=== PATIENT | male | born 1985 | race Caucasian/White ===

== ENCOUNTER 2018-09-03 13:28 | Observation (INO) | payer MEDICAID, OTHER ==
--- NOTE | 2018-09-03 13:41 | EDPHY ---
General - History Smoking Status: Current every day smoker Time Seen by Provider: 09/03/18 13:31 Narrative: CHIEF COMPLAINT: Low heart rate HISTORY OF PRESENT ILLNESS: Patient presents from the [facility] Office with complaints of low heart rate. Heart rate has been reportedly in the 30s and 40s for the past 3 days. The patient reports no symptoms from this, but he does state he is currently withdrawing from heroin since Saturday. He reports using heroin 2-3 times daily for many months. He is feeling better at this time. To Saturday but still feels some nausea and shakes that time. He has had no chest pain. No shortness of breath. No lightheadedness, dizziness or loss of consciousness. He was sent here due to heart rate in the upper 30s with an EKG that was reportedly junctional rhythm. He has had no previous diagnosis of bradycardia, conduction delay, or hypothyroid. He is asymptomatic. He has no modifying factors. No other associated complaints. REVIEW OF SYSTEMS: 10 systems were reviewed and negative with the exception of the elements mentioned in the history of present illness. PCP: None SPECIALISTS: None PAST MEDICAL HISTORY: Polysubstance abuse PAST SURGICAL HISTORY: No recent surgical history SOCIAL HISTORY: Denies tobacco use. Occasional alcohol use. He does endorse methamphetamine 1 week ago, heroin daily with last intake Saturday, cocaine 10 years ago. Currently incarcerated FAMILY HISTORY: Noncontributory EXAMINATION: General Appearance: Alert, no distress. Ambulatory. Conversing in full, coherent sentences. Head: normocephalic, atraumatic Eyes: Pupils equal and round, no conjunctival pallor or injection ENT, Mouth: Mucous membranes moist Neck: Normal inspection, supple, non-tender Respiratory: Lungs are clear to auscultation Cardiovascular: Regular rate and rhythm Gastrointestinal: Abdomen is soft and nontender Back: non-tender, no bony abnormalities Neurological: GCS 15. A&O, nonfocal, normal steady gait. Strength is symmetric in all 4 limbs. Skin: Warm and dry, no rash. Multiple tattoos. Extremities: Nontender, no pedal edema Psychiatric: Mood and affect normal DIFFERENTIAL DIAGNOSES: Including but not limited to bradycardia, junctional rhythm, electrolyte disturbance, conduction delay MDM: 1:40 p.m. Junctional rhythm versus bradycardia in a patient who is asymptomatic from this. He is currently withdrawing from heroin. He has no chest pain. No lightheadedness or syncope. He is conversing in full sentences. He is awake alert. He ambulated into the emergency department without difficulty. I discussed with Dr. Elizabeth. We will consult Cardiology. Laboratory studies pending. 1:55 p.m. Case discussed with on-call director of product marketing Dr. Mirza. He has reviewed the EKG in use. He will come evaluate the patient in the emergency department in consultation. 2:[address] Mirza evaluated the patient in the emergency department. He recommends admission for observation. 2:[address] Mirza has discussed the case with Dr. Elizabeth. He reportedly has read the echo was normal. Continue with observation admission. I discussed case with Dr. Mckenna. She will admit the patient to her service. She requested PCU bed, observation status. He is admitted stable condition. EKG interpretation: Dr. Elizabeth Junctional rhythm 38 beats per minute SUPERVISION: Patient was independently examined, but I discussed the case with my primary supervising physician Dr. Elizabeth. CONSULTATION: Cardiology, Dr. Mirza (MoralesSam) This patient was seen and examined by me. He presents with junctional bradycardia, with a normal blood pressure. Cardiovascular: Regular rhythm and rate, no murmur. He was seen by Dr. Mirza in the emergency department. Echocardiogram is normal. The plan is to admit the patient for observation overnight. (Maribell Elizabeth) - Objective Vital Signs: Initial Vital Signs Temperature (C) 36.9 C 09/03/18 13:29 Heart Rate 37 L 09/03/18 13:29 Respiratory Rate 16 09/03/18 13:29 Blood Pressure 151/92 H 09/03/18 13:29 O2 Sat (%) 98 09/03/18 13:29 O2 Delivery Mode Room Air Allergies/Adverse Reactions: No Known Allergies Allergy (Verified 09/03/18 13:34) Home Medications: Medication Instructions Recorded Acetaminophen [Tylenol ES 500 mg 1,000 mg PO TID PRN 09/03/18 (*)] Atenolol [Tenormin 50 mg (*)] 50 - 100 mg PO DAILY PRN 09/03/18 Bismuth Subsalicylate 15 - 30 ml PO TID PRN 09/03/18 [Pepto-Bismol oral liquid (*)] Folic Acid [Folic Acid 1 MG (*)] 1 mg PO DAILY 09/03/18 Ibuprofen [Motrin (*)] 800 mg PO BID PRN 09/03/18 Ondansetron Odt [Zofran Odt 4 mg 4 mg PO BID PRN 09/03/18 (*)] Promethazine HCl [Phenergan 25mg 25 mg PO TID PRN 09/03/18 (*)] Thiamine HCl 100 mg PO DAILY 09/03/18 chlordiazePOXIDE [Librium 25 mg 25 - 100 mg PO PRN PRN 09/03/18 (*)] clonIDINE [Catapres (*)] 0.1 mg PO TID PRN 09/03/18 Laboratory Results: Laboratory Results 09/03/18 14:00 09/03/18 14:00 09/03/18 09/03/18 09/03/18 14:01 14:00 14:00 WBC RBC Hgb Hct MCV MCH MCHC RDW Plt Count MPV Neut % (Auto) Lymph % (Auto) [place] % (Auto) Eos % (Auto) Baso % (Auto) Nucleat RBC Rel Count Absolute Neuts (auto) Absolute Lymphs (auto) Absolute Monos (auto) Absolute Eos (auto) Absolute Basos (auto) Absolute Nucleated RBC Immature Gran % Immature Gran # Sodium 141 mEq/L mEq/L (135-145) Potassium 4.1 mEq/L mEq/L (3.3-5.0) Chloride 107 mEq/L mEq/L (97-110) Carbon Dioxide 25 mEq/l mEq/l (22-31) Anion Gap 9 mEq/L mEq/L (6-14) BUN 7 mg/dL mg/dL (7-23) Creatinine 0.6 mg/dL L mg/dL (0.7-1.3) Estimated GFR > 60 Glucose 99 mg/dL mg/dL (70-100) Calcium 9.4 mg/dL mg/dL (8.5-10.4) Magnesium 2.1 mg/dL mg/dL (1.6-2.3) POC Troponin I 0.00 ng/mL ng/mL (0.00-0.08) TSH 2.170 uIU/mL uIU/mL (0.465-4.680) Hepatitis A IgM Ab Pending Hep Bs Antigen Pending Hep B Core IgM Ab Pending Hepatitis C Antibody Pending HIV 1&2 Antibody Pending 09/03/18 14:00 WBC 12.65 10^3/uL H 10^3/uL (3.80-9.50) RBC 4.40 10^6/uL 10^6/uL (4.40-6.38) Hgb 13.2 g/dL L g/dL (13.7-17.5) Hct 37.8 % L % (40.0-51.0) MCV 85.9 fL fL (81.5-99.8) MCH 30.0 pg pg (27.9-34.1) MCHC 34.9 g/dL g/dL (32.4-36.7) RDW 12.2 % % (11.5-15.2) Plt Count 286 10^3/uL 10^3/uL (150-400) MPV 10.5 fL fL (8.7-11.7) Neut % (Auto) 66.3 % % (39.3-74.2) Lymph % (Auto) 24.1 % % (15.0-45.0) Queens % (Auto) 8.2 % % (4.5-13.0) Eos % (Auto) 0.3 % L % (0.6-7.6) Baso % (Auto) 0.6 % % (0.3-1.7) Nucleat RBC Rel Count 0.0 % % (0.0-0.2) Absolute Neuts (auto) 8.39 10^3/uL H 10^3/uL (1.70-6.50) Absolute Lymphs (auto) 3.05 10^3/uL H 10^3/uL (1.00-3.00) Absolute Monos (auto) 1.04 10^3/uL H 10^3/uL (0.30-0.80) Absolute Eos (auto) 0.04 10^3/uL 10^3/uL (0.03-0.40) Absolute Basos (auto) 0.07 10^3/uL 10^3/uL (0.02-0.10) Absolute Nucleated RBC 0.00 10^3/uL 10^3/uL (0-0.01) Immature Gran % 0.5 % % (0.0-1.1) Immature Gran # 0.06 10^3/uL 10^3/uL (0.00-0.10) Sodium Potassium Chloride Carbon Dioxide Anion Gap BUN Creatinine Estimated GFR Glucose Calcium Magnesium POC Troponin I TSH Hepatitis A IgM Ab Hep Bs Antigen Hep B Core IgM Ab Hepatitis C Antibody HIV 1&2 Antibody Medications Given: Acetaminophen (Tylenol) 650 mg PO Q4HRS PRN PRN Reason: Pain, Mild/Fever, Can Take PO Stop: 03/02/19 15:21 Last Admin: 09/03/18 17:53 Dose: 650 mg Sodium Chloride (Ns) 1,000 mls @ 100 mls/hr IV CONT KATHERINE Stop: 03/02/19 15:29 Last Admin: 09/03/18 16:31 Dose: 1,000 mls Nicotine Polacrilex (Nicorette) 2 mg B Q1HR PRN PRN Reason: Nicotine Withdrawal Stop: 03/02/19 15:21 Last Admin: 09/03/18 16:33 Dose: 2 mg Ondansetron HCl (Zofran Odt) 4 mg PO Q4HRS PRN PRN Reason: Nausea/Vomiting, Use 1st Stop: 03/02/19 15:21 Last Admin: 09/03/18 16:31 Dose: 4 mg Point of Care Test Results: Chemistry 09/03/18 14:01 POC Troponin I 0.00 ng/mL ng/mL (0.00-0.08) Departure - Departure Disposition: [facility] Inpatient Acute Clinical Impression: Bradycardia, Junctional rhythm Condition: Fair
[2018-09-03 14:08] LABS: PLATELET COUNT 286 10^3/uL (150-400)
--- NOTE | 2018-09-03 14:57 | PDCONSULT ---
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 Patient was accompanied by in the ER. No obvious cardiovascular complaints, but the patient is in the throes of withdrawal. Patient was generally pleasant for inquiries, but also stated that he has not slept for the past three days. No complaints of chest pains or pressure. No PND or orthopnea. Track lines were present on both upper extremities. Patient admits to Heroin use in the vicinity of three times per day (for several months). Patient stated that the last time he used was just prior to incarceration. Meth was used last week. Uncertain on when alcohol was last used. Heroin use is solely via IV. Patient born and raised in [place]. No dizziness or lightheadedness (uncertain on how mobile the patient is given he is cuffed to the bed in the ER). No palpitations, chest pains or pressure. Patient did report that he heart rate has been "slow" in the past, but uncertain what his definition of "slow" would be. Patient also reports that he has been "exercising" in the mornings, and once again, I am uncertain what this specifically might mean. Remainder of 12 point review of systems was unremarkable PMHx: (1) No CAD, HTN, HLP, or DM (2) Significant polysubstance abuse FHx: Non contributory SHx: Alcohol abuse, Illicit use (regularly with meth and heroin at present). Patient is a non smoker NKDA No current prescription medications Vitals as below GEN: Awake and alert in NAD. SKIN: bilateral upper extremity track sun. Mild excoriations to arms HEENT: NCAT with PERRLA/EOMI with dilated pupils NECK: no JVD LUNGS: CTA bilaterally without wheeze or rales COR: Bradycardic with normal S1 and S2. No S3. No m/r/g ABD: soft, NTND EXT: No c/c/e, 2+ DP/PT/RAD pulses NEURO: no focal deficits Labs are all pending ECG with sinus bradycardia as well as intermittent junctional (no visible "p" waves) Echocardiogram (performed at bedside) with normal left ventricular systolic ejection fraction. No clear valve pathology. No obvious vegetations. Normal chamber dimensions Assessment: Uncertain etiology for the severe bradycardia noted - there is both sinus bradycardia as well as junctional bradycardia noted. Echocardiogram without vegetations noted. Labs (CBC and BMP) are pending. No symptoms noted, but then again, the patient is lying in bed, and has been incarcerated for the past several days (limiting his ability to regular activities). Recommendations: Patient should be brought in for obs given the bradyarrhythmias and the junctional rhythm noted. Monitor closely for withdrawal (would expect TACHYcardia with hypertension, not what we are seeing). Monitor via tele overnight (further concerns about heart rates overnight given resting heart rates at present). Blood pressure elevation noted, but would refrain from manas agents (beta blockers and calcium channel blockers) with heart rates to the degree that are noted.
--- NOTE | 2018-09-03 15:05 | ECHO ---
[email or web address] [address] [address] Main: [phone] Fax: Transthoracic Echocardiogram Name: SAIDA GONZALEZ MR#: [id number] Study Date: 09/03/2018 Study Time: 02:24 PM Date of : 1985 Age: 33 year(s) Height: 177.8 cm (70 in.) Weight: 81.65 kg (180 lb.) BSA: 2 m2 Gender: Male Examination: Echo Indication: Bradycardia, Polytoxic substance abuse Image Quality: Contrast: Requested by: Maribell Elizabeth BP: 151 mmHg/92 mmHg Heart Rate: Rhythm: Indication: Bradycardia, Polytoxic substance abuse Procedure Staff [employer] Faculty: Fadi Parekh RDCS Reading Physician: Randall Mirza MD Requesting Provider: Conclusions: Normal size left ventricle. No LV hypertrophy. Normal global systolic LV function. EF is 62 %. Normal RV function. The left atrium is normal in size. Trivial mitral valve regurgitation. There is no aortic valve regurgitation. There is no tricuspid valve regurgitation. The pulmonic valve is normal in appearance and function. The heart rate during the exam was between 36-40 bpm.. Measurements: Chambers Valvular Assessment AV/MV Valvular Assessment TV/PV Normal Normal Normal Name Value Range Name Value Range Name Value Range Ao Phuong (MM): 3.2 cm (2.2 cm-3.7 AV Vmax: 1.15 m/s (1 m/s-1.7 PV Vmax: 0.98 m/s (0.6 m/s-0.9 cm) m/s) m/s) IVSd (2D): 0.9 cm (0.6 cm-1.1 AV maxP mmHg ( - ) PV PGmax: 4 mmHg ( - ) cm) LVOT Vmax: 0.96 m/s (0.7 m/s-1.1 LVDd (2D): 5.3 cm (4.2 cm-5.9 m/s) cm) MV E Vmax: 1.12 m/s ( - ) LVDs (2D): 3.5 cm (2.1 cm-4 MV A Vmax: 0.24 m/s ( - ) cm) MV E/A: 4.67 ( - ) LVPWd (2D): 1.0 cm (0.6 cm-1 cm) LVEF (2D): 62 (>=54 %) Continued Measurements: Chambers Valvular Assessment AV/MV Patient: SAIDA GONZALEZ Study Date: 09/03/2018 Page 1 of 2 02:24 PM Name Value Name Value LADs: 3.7 cm MV E/E' Septal: 14.20 LADs Lon.8 cm MV E/E' Lateral: 7.90 LA Area: 18.7 cm2 Findings: Left Ventricle: Normal size left ventricle. No LV hypertrophy. Normal global systolic LV function. EF is 62 %. No regional wall motion abnormality. Right Ventricle: Normal size right ventricle. Normal RV function. Left Atrium: The left atrium is normal in size. Right Atrium: The right atrium is normal in size. Mitral Valve: The mitral valve is normal in appearance and function. Trivial mitral valve regurgitation. Aortic Valve: The aortic valve is tri-leaflet and functions normally. There is no aortic valve regurgitation. Tricuspid Valve: The tricuspid valve is normal in appearance and function. There is no tricuspid valve regurgitation. Pulmonic Valve: The pulmonic valve is normal in appearance and function. Aorta: The aorta is normal. Exam Comments: The heart rate during the exam was between 36-40 bpm.. (No Signature Object) Patient: SAIDA GONZALEZ Study Date: 09/03/2018 Page 2 of 2 02:24 PM [id number]
[2018-09-03] MEDS ORDERED: ONDANSETRON 4 MG/2 ML VIAL IVP PRN (15:22)
[2018-09-03] MEDS ORDERED: NICOTINE POLACRILEX 2 MG GUM B PRN (15:22)
[2018-09-03] MEDS ORDERED: PROMETHAZINE HCL 25 MG/ML INJ IVP PRN (15:22)
[2018-09-03] MEDS ORDERED: IBUPROFEN 200 MG TAB PO PRN (15:22)
[2018-09-03] MEDS ORDERED: BISMUTH SUBSALICYLATE 524 MG/30 ML UDL PO PRN (15:25)
[2018-09-03] MEDS ORDERED: chlordiazePOXIDE 25 MG CAP PO PRN (15:26)
[2018-09-03] MEDS ORDERED: NS 1,000 ML IV SCH (15:30)
[2018-09-03] MEDS: ONDANSETRON DISINTEGRATING 4 MG TAB PO PRN ×2 (16:31→22:11)
[2018-09-03] MEDS: ACETAMINOPHEN 325 MG TAB PO PRN (17:53)
[2018-09-03 19:12] LABS: HEPATITIS B CORE AB IGM NEGATIVE (NEGATIVE); HEPATITIS B SURFACE ANTIGEN NEGATIVE (NEGATIVE); HEPATITIS C ANTIBODY TOTAL NEGATIVE (NEGATIVE); HIV TYPE 1 AND 2 NEGATIVE (NEGATIVE)
--- NOTE | 2018-09-03 19:55 | PDGENHP ---
History and Physical - Chief Complaint slow heart rate/heroin withdrawal - History of Present Illness Patient is a 33 yo incarcerated male brought in with [facility] with concerns noted while in retirement of low heart rate and elevated BP. Patient notes he was a daily heroin and meth user prior to being arrested over the weekend. He notes his last heroin use was on Saturday, he does use it IV and admits to using dirty needles and sharing with his GF recently. He has been having relatively severe withdrawal including n/v/diarrhea/hot and cold flashes and sweats. He notes that today the withdrawal seemed to be improving. He states he told the retirement that he was also drinking heavily with hopes they would give him librium as that is what helps his withdrawal the most, but the truth is that he has not drank heavily in over 2 years. He denies chest pain, fevers or sob, he denies dizziness or lightheadedness or near syncope. He denies any hx of heart issues. History Information - Allergies/Home Medication List Allergies/Adverse Reactions: No Known Allergies Allergy (Verified 09/03/18 13:34) Home Medications: Acetaminophen [Tylenol ES 500 mg (*)] 1,000 mg PO TID PRN 09/03/18 [Last Taken Unknown] Atenolol [Tenormin 50 mg (*)] 50 - 100 mg PO DAILY PRN 09/03/18 [Last Taken Unknown] Bismuth Subsalicylate [Pepto-Bismol oral liquid (*)] 15 - 30 ml PO TID PRN 09/03 [Last Taken 09/02/18] Folic Acid [Folic Acid 1 MG (*)] 1 mg PO DAILY 09/03/18 [Last Taken 09/02/18] Ibuprofen [Motrin (*)] 800 mg PO BID PRN 09/03/18 [Last Taken 09/02/18] Ondansetron Odt [Zofran Odt 4 mg (*)] 4 mg PO BID PRN 09/03/18 [Last Taken 09/03 07:30] Promethazine HCl [Phenergan 25mg (*)] 25 mg PO TID PRN 09/03/18 [Last Taken 07:30] Thiamine HCl 100 mg PO DAILY 09/03/18 [Last Taken 09/02/18] chlordiazePOXIDE [Librium 25 mg (*)] 25 - 100 mg PO PRN PRN 09/03/18 [Last Taken 09/02/18] clonIDINE [Catapres (*)] 0.1 mg PO TID PRN 09/03/18 [Last Taken 09/02/18] I have personally reviewed and updated: family history, medical history, social history, surgical history - Past Medical History Additional medical history: polysubstance abuse--heroin/meth. prior etoh abuse. IVDA - Surgical History Additional surgical history: MCL repair - Family History Additional family history: father at age 40 of MS. Both side grandparents with alcoholism - Social History Smoking Status: Current every day smoker Alcohol Use: Occasionally Drug Use: Heroin, Other (meth) Additional social history: currently incarcerated Review of Systems Review of Systems: ROS: 10pt was reviewed & negative except for what was stated in HPI & below Physical Exam Physical Exam: Temp Pulse Resp BP Pulse Ox 36.9 C 37 L 15 142/78 H 100 09/03/18 13:29 09/03/18 15:37 09/03/18 15:37 09/03/18 15:37 09/03/18 15:37 Constitutional: no apparent distress, appears nourished Eyes: PERRL, anicteric sclera Ears, Nose, Mouth, Throat: moist mucous membranes, hearing normal, ears appear normal Cardiovascular: no murmur, rub, or gallop, bradycardia, No systolic murmur, No edema Respiratory: no respiratory distress, no rales or rhonchi, clear to auscultation Gastrointestinal: normoactive bowel sounds, soft, non-tender abdomen, no palpable masses Genitourinary: no bladder tenderness Skin: warm, normal color, other (track sun) Musculoskeletal: full muscle strength, no muscle tenderness Neurologic: AAOx3 Psychiatric: interacting appropriately, not anxious, not encephalopathic Lab Data & Imaging Review 09/03/18 14:00 09/03/18 14:00 WBC 12.65 10^3/uL (3.80-9.50) H 09/03/18 14:00 RBC 4.40 10^6/uL (4.40-6.38) 09/03/18 14:00 Hgb 13.2 g/dL (13.7-17.5) L 09/03/18 14:00 Hct 37.8 % (40.0-51.0) L 09/03/18 14:00 MCV 85.9 fL (81.5-99.8) 09/03/18 14:00 MCH 30.0 pg (27.9-34.1) 09/03/18 14:00 MCHC 34.9 g/dL (32.4-36.7) 09/03/18 14:00 RDW 12.2 % (11.5-15.2) 09/03/18 14:00 Plt Count 286 10^3/uL (150-400) 09/03/18 14:00 MPV 10.5 fL (8.7-11.7) 09/03/18 14:00 Neut % (Auto) 66.3 % (39.3-74.2) 09/03/18 14:00 Lymph % (Auto) 24.1 % (15.0-45.0) 09/03/18 14:00 Parker % (Auto) 8.2 % (4.5-13.0) 09/03/18 14:00 Eos % (Auto) 0.3 % (0.6-7.6) L 09/03/18 14:00 Baso % (Auto) 0.6 % (0.3-1.7) 09/03/18 14:00 Nucleat RBC Rel Count 0.0 % (0.0-0.2) 09/03/18 14:00 Absolute Neuts (auto) 8.39 10^3/uL (1.70-6.50) H 09/03/18 14:00 Absolute Lymphs (auto) 3.05 10^3/uL (1.00-3.00) H 09/03/18 14:00 Absolute Monos (auto) 1.04 10^3/uL (0.30-0.80) H 09/03/18 14:00 Absolute Eos (auto) 0.04 10^3/uL (0.03-0.40) 09/03/18 14:00 Absolute Basos (auto) 0.07 10^3/uL (0.02-0.10) 09/03/18 14:00 Absolute Nucleated RBC 0.00 10^3/uL (0-0.01) 09/03/18 14:00 Immature Gran % 0.5 % (0.0-1.1) 09/03/18 14:00 Immature Gran # 0.06 10^3/uL (0.00-0.10) 09/03/18 14:00 Sodium 141 mEq/L (135-145) 09/03/18 14:00 Potassium 4.1 mEq/L (3.3-5.0) 09/03/18 14:00 Chloride 107 mEq/L (97-110) 09/03/18 14:00 Carbon Dioxide 25 mEq/l (22-31) 09/03/18 14:00 Anion Gap 9 mEq/L (6-14) 09/03/18 14:00 BUN 7 mg/dL (7-23) 09/03/18 14:00 Creatinine 0.6 mg/dL (0.7-1.3) L 09/03/18 14:00 Estimated GFR > 60 09/03/18 14:00 Glucose 99 mg/dL (70-100) 09/03/18 14:00 Calcium 9.4 mg/dL (8.5-10.4) 09/03/18 14:00 Magnesium 2.1 mg/dL (1.6-2.3) 09/03/18 14:00 POC Troponin I 0.00 ng/mL (0.00-0.08) 09/03/18 14:01 Troponin I < 0.012 ng/mL (0.000-0.034) 09/03/18 18:30 TSH 2.170 uIU/mL (0.465-4.680) 09/03/18 14:00 Hep Bs Antigen NEGATIVE (NEGATIVE) 09/03/18 14:00 Hep B Core IgM Ab NEGATIVE (NEGATIVE) 09/03/18 14:00 Hepatitis C Antibody NEGATIVE (NEGATIVE) 09/03/18 14:00 HIV 1&2 Antibody NEGATIVE (NEGATIVE) 09/03/18 14:00 Visualized and Interpreted EKG results: Yes EKG additional interpertation: junctional rhythm, suri in the 30s Assessment & Plan Assessment: Bradycardia (Acute) Junctional rhythm (Acute) 33 yo M with hx of polysubstance IVDA currently in withdrawal from heroin with junctional bradycardia # bradycardia: asymptomatic, appreciate cardiology evaluation. Echo performed with normal EF, no sig valvular issues, no obvious vegetations. Patient was on atenolol and clonidine apparently in retirement likely contributing though reportedly he did not receive those today. At any rate, will hold both and monitor overnight on telemetry. # opiate withdrawal: has been several days since his last use and per his report his sxs are beginning to arvind though he continues to have significant diarrhea primarily. Will provide prn antiemetics, librium if anxiety is severe and start imodium # IVDA: with concerns that he has recently shared needles which he does not typically do, he is requesting HIV/hepatitis testing which has been ordered # leukocytosis: without other s/s of infection, will monitor # observation status, likely can dc in am if bradycardia resolves and no other concerns arise Patient new to my care. Old records reviewed and summarized as above. Care plan reviewed with ER doctor including plans for cardiology consultation.
[2018-09-03] MEDS ORDERED: LOPERAMIDE HCL 2 MG CAP PO PRN (20:10)
--- NOTE | 2018-09-03 20:39 | CPEKG ---
Test Reason : OPEN Blood Pressure : / mmHG Vent. Rate : 038 BPM Atrial Rate : 000 BPM P-R Int : 078 ms QRS Dur : 085 ms QT Int : 531 ms P-R-T Axes : 000 070 064 degrees QTc Int : 423 ms Junctional rhythm Confirmed by Maribell Elizabeth ([id number]) on 09/03/2018 8:38:38 PM Referred By: Confirmed By:Maribell Elizabeth
[2018-09-03 21:45] LABS: HEPATITIS A ANTIBODY IGM (BCH) NEGATIVE (NEGATIVE)
[2018-09-04] MEDS: ACETAMINOPHEN 325 MG TAB PO PRN (01:17)
[2018-09-04 07:18] VITALS: BP 135/104
[2018-09-04 08:35] LABS: PLATELET COUNT 288 10^3/uL (150-400)
[2018-09-04] MEDS: ONDANSETRON DISINTEGRATING 4 MG TAB PO PRN (08:50)
[2018-09-04] MEDS ORDERED: FOLIC ACID 1 MG TAB PO SCH (09:00)
[2018-09-04] MEDS ORDERED: THIAMINE HCL 100 MG TAB PO SCH (09:00)
--- NOTE | 2018-09-04 11:51 | PDCARPN ---
Cardiology Progress Note Chief Complaint: Patient reports that he had issues overnight with withdrawal Assessment/Plan: Assessment: 09-04-18 Patient doing well this morning. Poor sleep overnight 09-03-18 Patient is a 33 y/o male with unremarkable past cardiovascular history (no HTN, HLP, DM, or CAD), but heavy polysubstance abuse history (meth, IV heroin, and alcohol), who presents to [facility] ER after significant bradycardia noted while incarcerated at [facility]. Patient was accompanied by in the ER. No obvious cardiovascular complaints, but the patient is in the throes of withdrawal. Patient was generally pleasant for inquiries, but also stated that he has not slept for the past three days. No complaints of chest pains or pressure. No PND or orthopnea. Track lines were present on both upper extremities. Patient admits to Heroin use in the vicinity of three times per day (for several months). Patient stated that the last time he used was just prior to incarceration. Meth was used last week. Uncertain on when alcohol was last used. Heroin use is solely via IV. Patient born and raised in [place]. No dizziness or lightheadedness (uncertain on how mobile the patient is given he is cuffed to the bed in the ER). No palpitations, chest pains or pressure. Patient did report that he heart rate has been "slow" in the past, but uncertain what his definition of "slow" would be. Patient also reports that he has been "exercising" in the mornings, and once again, I am uncertain what this specifically might mean. Plan: There were some reports that the patient might have had beta blockers while in custody (but this has not been verified) (1) Would work with the patient to get through the various withdrawal issues currently noted (2) No clear symptoms have been noted with the bradycardia that has been noted - the degree of bradycardia has improved slightly from yesterday (3) Would arrange for patient to be seen in the outpatient setting by cardiology Subjective: No cardiovascular complaints were voiced today. Reviewed/Discussed With: hospitalist Objective: Vital Signs (8 Hrs) Temp Pulse Resp BP Pulse Ox 09/04/18 07:17 36.5 C 44 L 20 135/104 H 95 09/04/18 04:00 36.8 C 41 L 16 136/88 H 98 Intake/Output (24 Hrs) 09/03/18 09/04/18 09/05/18 05:59 05:59 05:59 Intake Total 4355 Output Total 900 Balance 3455 Intake: Oral (ml) 3450 IV Infused (ml) 905 Ns 1,000 ml @ 100 mls/hr 905 IV CONT KATHERINE Rx#: [id number] Output: Urine (ml) 900 Toilet 900 Other: Weight 81.647 kg Number of Voids Toilet 3 Number of Stools Toilet 2 Result Diagrams: 09/04/18 08:04 09/03/18 14:00 Cardiac Labs: Cardiac Lab Results (72 Hrs) 09/03/18 18:30 Troponin I < 0.012 Telemetry: Sinus bradycardia (<60 bpm) Echocardiogram: Normal LVEF without valve pathology appreciated. No vegetations were noted - Physical Exam Constitutional: WDWN, healthy appearing, no apparent distress Eyes: PERRL, EOMI Ears, Nose, Mouth, Throat: moist mucous membranes Cardiovascular: regular rate and rhythm, no murmurs, no rubs, no gallops, pulses symmetric bilat, No jugular vein distention Peripheral Pulses: 2+: dorsalis-pedis (R), dorsalis-pedis (L) Respiratory: clear to auscultate bilat, no crackles, no wheezes Gastrointestinal: normoactive bowel sounds Skin: abrasion, erythema, induration, rash Musculoskeletal: no muscular tenderness Neurologic: AAOx3, CN II-XII grossly intact Psychiatric: cooperative, interactive, following commands ICD10 Worksheet Patient Problems: Problems Problem Status Onset Bradycardia Acute Junctional rhythm Acute
--- NOTE | 2018-09-05 06:21 | GDS ---
DISCHARGE DIAGNOSES: 1. Bradycardia. 2. Polysubstance abuse with IV drug use including methamphetamine and heroin. 3. Opioid withdrawal, improved. 4. Leukocytosis, resolved. CONSULTANTS: Dr. Randall Mirza, Cardiology. IMAGING STUDIES: Echocardiogram, September 03, 2018, showed normal LV function with an ejection fracti on of 62%, normal RV function and no significant valvular abnormalities. HISTORY OF PRESENT ILLNESS: Please see history and physical dated September 03, 2018. In brief, the lyn fowler is a 33-year-old male with a history of IV drug abuse, who was brought to the emergency depart ment from intermediate due to a low heart rate and elevated blood pressure. Upon arrival, his heart rate was in the 30s, though he was asymptomatic without chest pain, shortness of breath, dizziness, or hypote nsion. He was admitted to the hospital for further management. HOSPITAL COURSE: Patient was admitted to the cardiac telemetry unit. It became evident he had been receiving atenolol 100 mg daily at the intermediate along with clonidine. It sounds as though they were usin g atenolol to possibly treat opioid withdrawal. He states his withdrawal symptoms are abating as thi s is day 4. His atenolol was obviously held. His heart rate actually improved in the absence of bet a blockers and was in the mid-to-high 40s on the day of discharge. Again, he remained asymptomatic. The echocardiogram was performed, which revealed no concerning abnormalities. Cardiology consult wa s obtained and agreed with discontinuation of beta ena. Given his history of IV drug abuse he patel d hepatitis and HIV screening and was negative for hepatitis A, B, C and HIV was also negative. In a ddition, his TSH was normal. DISPOSITION: Patient is discharged back to intermediate in stable condition. FOLLOWUP: He should follow up with his primary care physician Dr. Kenny Kang. He also has plan s to attend inpatient rehab where he says his mother has secured a bed and I have encouraged him to d o so for treatment for his addiction issues. DISCHARGE MEDICATIONS: Please see [facility]OW[facility] completed outpatient medication list. New medications on discharge include Tylenol mg p.o. q.4 hours p.r.n. Discontinued medications: Atenolol was discontinued and he should no longer be given any beta blocke rs or calcium channel blockers due to the risk of bradycardia. He will continue all other outpatient medications as previously prescribed. /[id number]/MODL
--- NOTE | 2018-09-07 14:51 | CPEKG ---
Test Reason : OPEN Blood Pressure : / mmHG Vent. Rate : 041 BPM Atrial Rate : 042 BPM P-R Int : 124 ms QRS Dur : 089 ms QT Int : 500 ms P-R-T Axes : 057 067 070 degrees QTc Int : 413 ms Sinus bradycardia Confirmed by Thad Diaz ([id number]) on 09/07/2018 2:50:44 PM Referred By: Confirmed By:Thad Diaz
== END 2018-09-04 11:54 | disposition home or self-care (01) ==
LOC: EEVIPCON 14:36 → F2W 15:59
PROVIDERS: ADMIT Internal Medicine; ATTEND Hospitalist
DX: R00.1 Bradycardia, unspecified (principal); F15.10 Other stimulant abuse, uncomplicated; F11.23 Opioid dependence with withdrawal; D72.829 Elevated white blood cell count, unspecified
CPT/HCPCS: 93005; 93306; 96374; 99285; G0378; 84484-PO; G0472; J2550

== ENCOUNTER 2019-01-11 00:11 | Emergency (ER) | payer MEDICAID, OTHER ==
--- NOTE | 2019-01-11 01:50 | EDPHY ---
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 Pain reproducible palpation range of motion. No discoloration. No fever or chills. No trauma no fall. No core stacker strength abnormality. PRIMARY CARE PROVIDER: REVIEW OF SYSTEMS: A ten point review of systems was performed and is negative with the exception of the items mentioned in the HPI PHYSICAL EXAM (Prior to examination, patient consented to physical exam, hands were washed and my usual and customary physical exam procedures followed) 1) GENERAL: Well-developed, well-nourished, alert and oriented. Appears to be in no acute distress. 2) HEAD: Normocephalic 3) HEENT: Pupils equal, round, reactive to light bilaterally. 4) LUNGS: Breathing comfortably. 5) MUSCULOSKELETAL: Evaluation hands reveals no signs of infection, normal coloration. Mildly tender to palpation distal 4th metacarpal. No crepitus. No malrotation. Normal cascading of digits. Opposition Soft compartments. Normal coloration. Dag Sprayer strength equal. Negative kanavel. 6) SKIN: Intact no evidence of cellulitis 7) VASCULAR: pulses and cap refill present are brisk 8) NEUROLOGIC: Radial, ulnar, median nerve function intact with no deficits appreciated on exam DIFFERENTIAL DIAGNOSIS: in no particular order including but not limited to fracture, sprain, compartment syndrome Xray of the right hand interpreted by myself: no definitive acute osseous abnormality Procedure: Splint A Velcro volar splint was applied by ER darkroom technician. After application of the splint I returned and re-examined the patient. The splint was adequately immobilizing the joint and distal to the splint the patient's circulation and sensation were intact. Patient shows no signs of compartment syndrome. Was given orthopedic precautions. Smoking Status: Current every day smoker Constitutional: Initial Vital Signs Temperature (C) 36.5 C 01/11/19 00:16 Heart Rate 98 01/11/19 00:16 Respiratory Rate 16 03/10/19 00:16 Blood Pressure 149/84 H 01/11/19 00:16 O2 Sat (%) 96 01/11/19 00:16 O2 Delivery Mode Room Air Allergies/Adverse Reactions: No Known Allergies Allergy (Verified 01/11/19 00:15) Home Medications: Medication Instructions Recorded Sertraline HCl [Zoloft 100mg (*)] 100 mg PO DAILY 30 Days tab 01/11/19 Zoloft 100mg (*) 01/11/19 MDM/Departure - [facility] ED Course/Re-evaluation: Re-evaluation with serial exams. Doubt infectious etiology to his hand pain. No evidence of acute fracture dislocation on hand pain. I do not think that MRI indicated at this time. No evidence of deep space infection or infectious tenosynovitis. He requested a refill of his Zoloft noting that he ran out a few days ago. I have agreed to give him a 1 month supply and further dosages will need prescribed by [facility]. - Depart Disposition: Home, Routine, Self-Care Clinical Impression: Right hand pain Condition: Good Instructions: Hand Sprain (ED) Additional Instructions: Return to the ER immediately if you experience discoloration, have worsening pain, numbness, tingling, or any other symptoms that concern you. If you received x-rays in the emergency department today, be advised, that ligamentous , tendon, muscular, and other non-bony injury cannot be fully ruled out. Try to keep your affected extremity elevated above the level of your chest, and keep cold packs on the affected area, for the next 48 hours. Adult Pain & Fever Control: We recommend Acetaminophen (Tylenol) and Ibuprofen (Motrin,Advil) for pain and fever control. When fever is high or pain severe, both drugs can be used at the same time, but at different intervals. Please note the time differences. Your dose is: Acetaminophen 650mg every 4 to 6 hours Ibuprofen 600mg every 6 hours with food OR . Note: do not take Acetaminophen with Hydrocodone (Vicodin, Lortab) or Oycodone (Percocet). These medications also contain Acetaminophen. No more than 3000mg of Acetaminophen should be taken in 24 hours (for an adult). Prescriptions: Sertraline HCl [Zoloft 100mg (*)] 100 mg PO DAILY 30 Days tab Referrals: Mikey Yun MD [Medical Doctor] - 2-3 days, call for appt.
[2019-01-11 04:26] VITALS: BP 131/74
== END 2019-01-11 04:26 | disposition home or self-care (01) ==
DX: M79.641 Pain in right hand (principal); X50.3XXA Overexertion from repetitive movements, initial encounter; Y93.G1 Activity, food preparation and clean up; Y99.0 Civilian activity done for income or pay; F17.200 Nicotine dependence, unspecified, uncomplicated
CPT/HCPCS: L3984